=== PATIENT | female | born 1955 | race Caucasian/White ===

== ENCOUNTER 2022-10-16 09:15 | Outpatient (CLI) | payer MEDICARE ==
[2022-10-16 10:33] LABS: Hemoglobin 13.3 g/dL (12.0-15.5)
[2022-10-16 11:26] LABS: Anion Gap 13 mmol/L (10-20); BUN (Urea Nitrogen) 20 mg/dL (9.8-20.1); Calc. Creatinine Clearance 0 mL/min (70-130); Calcium 9.7 mg/dL (7.8-10.44); Carbon Dioxide 28 mmol/L (23-31); Chloride 105 mmol/L (98-107); Estimated GFR 67; Glucose 95 mg/dL (80-115); Potassium 4.2 mmol/L (3.5-5.1); Sodium 142 mmol/L (136-145)
== END 2022-10-16 09:16 | disposition home or self-care (01) ==
LOC: LABBT 09:15
PROVIDERS: ATTEND Specialist
DX: Z01.812 Encounter for preprocedural laboratory examination (principal); J38.00 Paralysis of vocal cords and larynx, unspecified
CPT/HCPCS: 80048; 85014; 85018; 93005; 93010

== ENCOUNTER 2022-10-19 08:58 | Day surgery (SDC) | payer MEDICARE ==
[2022-10-18 11:06] VITALS: BMI 17.9
[2022-10-19] MEDS ORDERED: Fentanyl 250 MCG/5 ML VIAL ONE (11:36)
[2022-10-19] MEDS ORDERED: SUGAMMADEX SODIUM 200 MG/2 ML VIAL ONE (11:39)
[2022-10-19] MEDS ORDERED: Rocuronium Bromide 10 MG/ML (10ML VIAL) ONE (11:40)
[2022-10-19] MEDS ORDERED: Dexamethasone 20 MG/5 ML VIAL ONE (11:40)
[2022-10-19] MEDS ORDERED: PHENYLEPHRINE-NS 100 MCG/ML 10 ML SYRINGE ONE (11:40)
[2022-10-19] MEDS ORDERED: ePHEDrine 50 MG/ML VIAL ONE (11:40)
[2022-10-19] MEDS ORDERED: PROPOFOL 200 MG/20 ML VIAL ONE (11:40)
[2022-10-19] MEDS ORDERED: Ondansetron PF 4 MG/2 ML Vial ONE (11:40)
[2022-10-19] MEDS ORDERED: Morphine 4 MG/ML VIAL ONE (12:49)
== END 2022-10-19 13:25 | disposition home or self-care (01) ==
LOC: SDC 08:58
PROVIDERS: ATTEND Specialist
PROC: 3E0F8GC Introduction of Other Therapeutic Substance into Respiratory Tract, Via Natural or Artificial Opening Endoscopic (ICD-10-PCS; principal; 2022-10-19)
DX: J38.01 Paralysis of vocal cords and larynx, unilateral (principal); G47.00 Insomnia, unspecified
CPT/HCPCS: C1776; J1100; J2270; J2405; J2704; J3010; J3490